=== PATIENT | female | born 1960 | race Caucasian/White ===

== ENCOUNTER 2020-04-21 09:21 | Emergency (ER) | payer OTHER ==
[~2020-04-21] VITALS: Ht 170.2 cm; Wt 59.9 kg
[~2020-04-21 09:21] MED LIST: ALEVE220 M1; CIPRO500 MG PO; FLAGYL500 MG PO; NORCO 5-325 TA1 EACH PO; ZOFRAN4 MG PO
[2020-04-21] MEDS ORDERED: OMEPRAZOLE20 MG PO (09:49)
[2020-04-21] MEDS ORDERED: AMLODIPINE BESYL5 MG PO (09:49)
== END 2020-04-21 11:08 | disposition home or self-care (01) ==
LOC: ED 09:21
DX: J44.9 Chronic obstructive pulmonary disease, unspecified (principal); F17.200 Nicotine dependence, unspecified, uncomplicated; Z88.0 Allergy status to penicillin; Z79.899 Other long term (current) drug therapy
CPT/HCPCS: 71260; 93970; 99285-25; Q9967

== ENCOUNTER 2020-05-29 06:40 | Emergency (ER) | payer OTHER ==
[~2020-05-29] VITALS: Ht 170.2 cm; Wt 59.9 kg
[~2020-05-29 06:40] MED LIST changes: +AMLODIPINE BESYL5 MG PO; +OMEPRAZOLE20 MG PO
[2020-05-29] MEDS ORDERED: VENTOLIN HFA18 GM INH (06:51)
[2020-05-29] MEDS ORDERED: FLUTICASONE-SA1 EAC4 INH (06:52)
[2020-05-29] MEDS ORDERED: TRIAMCINOLONE A15 G2 TOP (06:53)
[2020-05-29] MEDS ORDERED: BETAMETHASONE D60 ML TOP (06:54)
[2020-05-29] MEDS ORDERED: PREDNISONE20 MG PO (08:54)
--- NOTE | 2020-05-29 12:10 | EKG ---
[facility] [address] [facility] [place], [place] [address] Signed Normal sinus rhythm Nonspecific ST abnormality Abnormal ECG No previous ECGs available Confirmed by CHITO MARTINES MD ([id number]) on 05/29/2020 12:10:06 PM Electronically Signed By: CHITO MARTINES MD 05/29/20 1210 PATIENT NAME: ARABELLARL KANG Electrocardiogram DATE OF : 56 PHYSICIAN: CHITO MARTINES MD REPORT #: [id number] REPORT IS CONFIDENTIAL AND NOT TO BE RELEASED WITHOUT AUTHORIZATION
== END 2020-05-29 09:12 | disposition home or self-care (01) ==
LOC: ED 06:40
DX: J44.1 Chronic obstructive pulmonary disease with (acute) exacerbation (principal); Z20.822 Contact with and (suspected) exposure to COVID-19; F17.200 Nicotine dependence, unspecified, uncomplicated; Z88.0 Allergy status to penicillin; Z79.899 Other long term (current) drug therapy
CPT/HCPCS: 71045; 80053; 83735; 83880; 84484; 85025; 93005; 93010; 96374; 99285-25; C9803; J2930; U0003

== ENCOUNTER 2020-09-13 08:31 | Day surgery (SDC) | payer OTHER ==
[~2020-09-13] VITALS: Ht 170.2 cm; Wt 60.9 kg
[~2020-09-13 08:31] MED LIST changes: +ACLIDINIUM IH; +BETAMETHASONE D60 ML TOP; +FLAX OIL1000 MG PO; +FLUTICASONE-SA1 EAC4 INH; +FORMOTEROL IH; +MAGNESIUM30 MG PO; +PREDNISONE20 MG PO; +TRIAMCINOLONE A15 G2 TOP; +TRIAMCINOLONE10 GM MISC; +VENTOLIN HFA18 GM INH
--- NOTE | 2020-09-13 10:40 | NUR ---
09/13/20 1040 Rossana Koroma 1037 PATIENT ARRIVES TO PACU UNRESPONSIVE TO PAIN, ORAL AIRWAY IN PLACE. RESP EVEN AND UNLABORED, MASK AT 10 LITERS, DECREASED TO 6.
--- NOTE | 2020-09-13 11:29 | NUR ---
1115: PATIENT BACK IN DAY SURGERY ROOM FROM PACU. DENIES PAIN. VS CHECKED. TOLERATING WATER. PATIENT ASSISTED OOB AND TO BATHROOM. GAIT STEADY. WARM BLANKETS GIVEN TO PATIENT. CALL LIGHT WITHIN REACH. SOUP ORDERED FOR PATIENT.
--- NOTE | 2020-09-13 12:13 | NUR ---
1200: DISCHARGE INSTRUCTIONS GIVEN TO PATIENT. VS CHECKED. IV DC'D WNL. TIP INTACT. DRESSING APPLIED. PATIENT GETTING DRESSED. 1207: PATIENT DISCHARGED TO HOME WITH VIA WHEELCHAIR.
--- NOTE | 2020-09-15 16:52 | PATH ---
[facility] [address] [place], [place] [address] Signed SPECIMEN(S): A RIGHT VOCAL CORD SPECIMEN SOURCE: A. RIGHT VOCAL CORD CLINICAL HISTORY: Laryngeal lesion, right vocal cord. Direct laryngoscopy biopsy, right vocal cord. FINAL PATHOLOGIC DIAGNOSIS: Right vocal cord tissue, biopsy: - Polypoid squamous mucosa with hyperparakeratosis and reactive epithelial changes. - Negative for dysplasia or malignancy. COMMENT: A PAS/D stain (with appropriately staining controls) is negative for fungal organisms. As part of [facility] Quality Improvement Program, this case was reviewed by another member of our pathology staff. NAL:cml:C2NR MICROSCOPIC EXAMINATION: Histologic sections of all submitted blocks are examined by light microscopy. These findings, together with the gross examination, support the pathologic diagnosis. GROSS DESCRIPTION: The specimen, labeled "CP, A.," and designated on the requisition "right vocal cord tissue," is received in formalin and consists of one mott soft tissue fragment measuring 0.8 x 0.3 x 0.1 cm. Specimen is entirely submitted in cassette (A1). AT (under the direct supervision of a pathologist) The Gross Description was prepared using a voice recognition system. The report was reviewed for accuracy; however, sound-alike word errors, addition and/or deletions may occur. If there is any question about this report, please contact Client Services. PERFORMING LABORATORY: The technical component was performed by [facility], [address] [place] [id number] (Finding Fastener: Sybil Waldrop MD; CLIA# [id number]). PATIENT NAME: RL BELL PATHOLOGY DATE OF : 56 REPORT #: [id number] PHYSICIAN: [facility] PCP: KADI RUFF MD REPORT IS CONFIDENTIAL AND NOT TO BE RELEASED WITHOUT AUTHORIZATION [facility] [address] [place], [place] [address] Signed Professional interpretation was performed by [facility], [address] [address] (CLIA# [id number]). Diagnostician: Sugar Haro MD Pathologist Electronically Signed 09/15/2020 Copies: ~ PATIENT NAME: RL BELL PATHOLOGY DATE OF : 56 REPORT #: [id number] PHYSICIAN: [facility] PCP: KADI RUFF MD REPORT IS CONFIDENTIAL AND NOT TO BE RELEASED WITHOUT AUTHORIZATION
--- NOTE | 2020-09-20 14:06 | OR ---
[facility] [address] [place], [place] [address] Signed DATE OF OPERATION: 09/13/2020 SURGEON: Rashid Whitlock MD PREOPERATIVE DIAGNOSIS: Right vocal cord lesion. POSTOPERATIVE DIAGNOSIS: Right vocal cord lesion. PROCEDURE: Direct laryngoscopy, biopsy of right vocal cord lesion. ANESTHESIA: General orotracheal. NATURAL GAS INSPECTOR: Pancho. PREOPERATIVE HISTORY: Rl Bell is a 60-year-old lady, long-time smoker with recent hoarseness. Examining in the office by fiberoptic laryngoscopy showed a whitish lesion on the right vocal cord. She is taken to the operating room for the above-mentioned procedures. OPERATIVE PROCEDURE AND FINDINGS: After informed consent, the patient was taken to the operating room, placed in supine position where general orotracheal anesthesia was induced. The patient and procedure were verified. The patient was repositioned. Anterior commissure laryngoscope was used to visualize the hypopharynx and larynx, no abnormality except for the right vocal cord, there was a white thin lesion on the right vocal cord close, but not involving the anterior commissure extending for about half the vocal cord length posteriorly. It was only on the medial surface of the vocal cord not involving the ventricle or subglottic area to any great degree. was used to strip the lesion, completely removed, sent to pathology in formalin. No other abnormalities. No other lesions were identified on laryngoscopy. The bleeding was minimal and stopped after several minutes of observation. The pharynx was suctioned clear of blood secretions. The scope was removed. The patient was awakened, extubated, transported to the recovery room in good condition. No complications. BLOOD LOSS: Electronically Signed By: RASHID WHITLOCK MD 09/20/20 1406 PATIENT NAME: RL BELL OPERATIVE REPORT DATE OF : 56 REPORT #: [id number] PHYSICIAN: ARSHID WHITLOCK MD PCP: KADI RUFF MD REPORT IS CONFIDENTIAL AND NOT TO BE RELEASED WITHOUT AUTHORIZATION [facility] [address] [place] [address] Signed Minimal. SPECIMEN: To pathology. DRAINS: No drains. Rashid Whitlock MD GC/MODL /[id number] Copies: ~ Electronically Signed By: RASHID WHITLOCK MD 09/20/20 1406 PATIENT NAME: RL BELL OPERATIVE REPORT DATE OF : 56 REPORT #: [id number] PHYSICIAN: RASHID WHITLOCK MD PCP: KADI RUFF MD REPORT IS CONFIDENTIAL AND NOT TO BE RELEASED WITHOUT AUTHORIZATION
== END 2020-09-13 12:07 | disposition home or self-care (01) ==
LOC: DS 08:31 → OPS 08:31 → DS 10:15 → OPS 12:07
PROVIDERS: ATTEND Otolaryngology
PROC: 0CBT8ZX Excision of Right Vocal Cord, Via Natural or Artificial Opening Endoscopic, Diagnostic (ICD-10-PCS; principal; 2020-09-13 10:15)
DX: J38.1 Polyp of vocal cord and larynx (principal); J38.3 Other diseases of vocal cords; I10 Essential (primary) hypertension; J44.9 Chronic obstructive pulmonary disease, unspecified; F17.210 Nicotine dependence, cigarettes, uncomplicated; Z88.8 Allergy status to other drugs, medicaments and biological substances
CPT/HCPCS: 00170; 88312; J0330; J1100; J1885; J2250; J2405; J2704; J2765; J3010; J7121

== ENCOUNTER 2020-12-25 08:56 | Emergency (ER) | payer OTHER ==
[~2020-12-25] VITALS: Ht 170.2 cm; Wt 61.2 kg
[2020-12-25] MEDS ORDERED: BETAMETHASONE D15 G2 TOP (09:16)
[2020-12-25] MEDS ORDERED: PREDNISONE20 MG PO (12:00)
[2020-12-25] MEDS ORDERED: ZITHROMAX250 MG PO (12:00)
--- NOTE | 2020-12-25 18:10 | EKG ---
[facility] [address] [facility] [place] [address] Signed Normal sinus rhythm T wave abnormality, consider inferior ischemia Abnormal ECG When compared with ECG of 12-SEP-2020 09:50, No significant change was found Confirmed by CHITO MARTINES MD ([id number]) on 12/25/2020 6:10:43 PM Electronically Signed By: CHITO MARTINES MD 12/25/201809 PATIENT NAME: RL BELL Electrocardiogram DATE OF : 56 PHYSICIAN: CHITO MARTINES MD REPORT #: [id number] REPORT IS CONFIDENTIAL AND NOT TO BE RELEASED WITHOUT AUTHORIZATION
== END 2020-12-25 12:36 | disposition home or self-care (01) ==
LOC: ED 08:56
DX: J44.1 Chronic obstructive pulmonary disease with (acute) exacerbation (principal); J06.9 Acute upper respiratory infection, unspecified; Z20.822 Contact with and (suspected) exposure to COVID-19; F17.200 Nicotine dependence, unspecified, uncomplicated; Z88.8 Allergy status to other drugs, medicaments and biological substances; Z88.0 Allergy status to penicillin; Z79.899 Other long term (current) drug therapy
CPT/HCPCS: 71045; 80053; 84484; 85025; 93005; 93010; 96374; 99285-25; C9803; J1885; U0003

== ENCOUNTER 2021-10-19 19:39 | Emergency (ER) | payer OTHER ==
[~2021-10-19] VITALS: Ht 170.2 cm; Wt 56.2 kg
[~2021-10-19 19:39] MED LIST changes: +BETAMETHASONE D15 G2 TOP; +ZITHROMAX250 MG PO
[2021-10-19] MEDS ORDERED: SPIRIVA RESPIMAT4 GM INH (19:58)
[2021-10-19] MEDS ORDERED: HYDROCODON-ACE1 EA10 PO (23:49)
[2021-10-19] MEDS ORDERED: CYCLOBENZAPRINE10 MG PO (23:49)
== END 2021-10-20 00:07 | disposition home or self-care (01) ==
LOC: ED 19:39
DX: M54.2 Cervicalgia (principal); R51.9 Headache, unspecified; J44.9 Chronic obstructive pulmonary disease, unspecified; F17.200 Nicotine dependence, unspecified, uncomplicated; Z88.0 Allergy status to penicillin; Z88.8 Allergy status to other drugs, medicaments and biological substances; Z79.899 Other long term (current) drug therapy
CPT/HCPCS: 36415; 70450; 70491; 80053; 85025; 96375; 96376; 99283-25; A9270; J1170; J2405; Q9967

== ENCOUNTER 2024-11-24 19:50 | Emergency (ER) | payer MEDICARE ==
[~2024-11-24] VITALS: Ht 170.2 cm; Wt 56.7 kg
[~2024-11-24 19:50] MED LIST changes: +CYCLOBENZAPRINE10 MG PO; +HYDROCODON-ACE1 EA10 PO; +SPIRIVA RESPIMAT4 GM INH
[2024-11-24] MEDS ORDERED: ALDACTONE50 MG PO (20:25)
[2024-11-24] MEDS ORDERED: D3-501250 MCG PO (20:26)
[2024-11-24] MEDS ORDERED: TOPROL XL50 MG PO (20:26)
[2024-11-24] MEDS ORDERED: MULTI-VITAMIN1 EACH PO (20:27)
[2024-11-24] MEDS ORDERED: EPIPEN 2-P0.3 MG/0.3 IM (23:00)
[2024-11-24] MEDS ORDERED: METHYLPREDNISOLO4 M1 PO (23:00)
[2024-11-24 23:15] VITALS: BP 112/69
== END 2024-11-24 23:15 | disposition home or self-care (01) ==
LOC: ED 19:50
DX: T63.441A Toxic effect of venom of bees, accidental (unintentional), initial encounter (principal); R22.0 Localized swelling, mass and lump, head; J44.9 Chronic obstructive pulmonary disease, unspecified; F17.200 Nicotine dependence, unspecified, uncomplicated; Z90.710 Acquired absence of both cervix and uterus; Z91.030 Bee allergy status; Z88.0 Allergy status to penicillin; Z88.8 Allergy status to other drugs, medicaments and biological substances; Z79.899 Other long term (current) drug therapy; Z87.442 Personal history of urinary calculi
CPT/HCPCS: 99282; J8540; Q0163

== ENCOUNTER 2024-11-28 17:22 | Emergency (ER) | payer MEDICARE ==
[~2024-11-28] VITALS: Ht 170.2 cm; Wt 56.7 kg
[~2024-11-28 17:22] MED LIST changes: +ALDACTONE50 MG PO; +D3-501250 MCG PO; +EPIPEN 2-P0.3 MG/0.3 IM; +METHYLPREDNISOLO4 M1 PO; +MULTI-VITAMIN1 EACH PO; +TOPROL XL50 MG PO
--- OUTSIDE RECORDS SUMMARY | 2024-11-28 17:29 | XMS ---
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 Roxanna VISIT COUNT (12 MO.) 2 [facility] TOTAL 2 NOTE: Visits indicate total known visits. ED/UCC VISIT TRACKING (12 MO.) 11/28/2024 17:22 [facility] [place] TYPE: Emergency COMPLAINT: - INJURED LEG/ELBOW 11/24/2024 19:50 [facility] [place] TYPE: Emergency COMPLAINT: - FACIAL SWELLING,BEE STING DIAGNOSES: - Acquired absence of both cervix and uterus - Allergy status to other drugs, medicaments and biological substances - Allergy status to penicillin - Bee allergy status - Chronic obstructive pulmonary disease, unspecified - Localized swelling, mass and lump, head - Nicotine dependence, unspecified, uncomplicated - Other care home (current) drug therapy - Personal history of urinary calculi - Toxic effect of venom of bees, accidental (unintentional), initial encounter INPATIENT VISIT TRACKING (12 MO.) No inpatient visits to display in this time frame [email or web address]
[2024-11-28] MEDS ORDERED: EPINEPHRIN0.3 MG/0.3 IM (17:36)
[2024-11-28 18:42] VITALS: BP 126/80
== END 2024-11-28 18:42 | disposition home or self-care (01) ==
LOC: ED 17:22
DX: M70.52 Other bursitis of knee, left knee (principal); J44.9 Chronic obstructive pulmonary disease, unspecified; F17.200 Nicotine dependence, unspecified, uncomplicated; Z88.0 Allergy status to penicillin; Z88.8 Allergy status to other drugs, medicaments and biological substances; Z91.030 Bee allergy status; Z79.899 Other long term (current) drug therapy
CPT/HCPCS: 73560; 99283-25